=== PATIENT | female | born 1990 | race Caucasian/White ===

== ENCOUNTER 2024-08-12 14:33 | Emergency (ER) | payer BC, SELFPAY ==
[2024-08-12 14:35] VITALS: BP 132/80
--- NOTE | 2024-08-12 15:24 | ED.GENMED ---
History of Present Illness
General
Chief Complaint: Fall
Source: patient
Time Seen by Provider: 08/12/24 14:57
History of Present Illness
History of Present Illness:
34-year-old female presenting to the emergency department for evaluation after she was walking her dogs, fell forward striking her head on the ground and sustained a 1-1/2 cm superficial laceration just lateral to the right eyebrow. There was no
loss consciousness, vomiting, visual changes, focal weakness or numbness. Patient denies any use of anticoagulants. Tetanus vaccine is up-to-date. She does note a very mild headache with discomfort mainly over the right forehead from where she
sustained the laceration.
Past History
Past History
ED Past Medical History: Psychiatric
ED Past Surgical History:
Social History
Tobacco: Non-smoker
Alcohol: Occasional
Drug: None
Personal:
Living: with family
Review of Systems
Review of Systems
All Other Systems: ROS reviewed and negative except as documented in HPI and ROS
Phy Exam
Physical Exam
Physical Exam:
GENERAL: Alert , in no apparent distress
EYE: conjunctiva clear
Head: 1-1/2 cm vertically oriented linear laceration just lateral to the right eyebrow, no active bleeding
NECK: Supple,
ENT: mmm.
LUNGS: no acute respiratory distress
NEUROLOGICAL: Alert and oriented
SKIN: Warm and dry, skin intact.
MUSCULOSKELETAL: well perfused.
PSYCH: Normal and appropriate interaction.
Scores
Heart Failure Risk
Heart Failure Risk Score: Not Applicable
Heart Score for Chest Pain Patients
STEMI patient?: Not applicable
Withdrawal Assessment of Alcohol
Withdrawal Assessment Completed?: Not applicable
Course
Vital Signs
Initial and Last Documented VS:
Initial Vital Signs
Temp Pulse Resp BP Pulse Ox
98.2 F 100 16 132/80 99
08/12/24 14:35 08/12/24 14:35 08/12/24 14:35 08/12/24 14:35 08/12/24 14:35
Last Documented Vital Signs
Temp Pulse Resp BP Pulse Ox
98.2 F 100 16 132/80 99
08/12/24 14:35 08/12/24 14:35 08/12/24 14:35 08/12/24 14:35 08/12/24 14:35
Procedures
Laceration Closure
Right Lateral Eye brow:
Status of Wound: clean
Size of Wound in cm: 1.5
Description of Wound Edges: sharp
Preparation: cleaned with saline
Anesthesia: 1% Lidocaine with epi
Revision/Debridement: routine- no revision
Skin Closure Material: 6-0 prolene
Number of sutures: 6
MDM/Problems Addressed
Differential Diagnosis Includes:
Contusion/laceration, concussion, I do not have concern for intracranial bleeding or calvarial fracture
MDM/Problems Addressed:
34-year-old female presenting to the emergency department for evaluation following an accidental trip and fall resulting in superficial laceration to the right lateral eyebrow. Laceration repaired as above without difficulty. Discussed risk first
benefit of CT imaging and concussion. Patient and spouse okay with foregoing CT scan. Discussed return precautions to the ER. Wound care discussed. Tetanus is up-to-date. Stable for discharge home.
*Pulse Oximetry
Patient hypoxic: no
*Critical Care Note
Total Time (30-74mins, 75-104mins- exclusive of procedures): Not Applicable
ED Attending Note
-
Portions of this chart may have been created with voice recognition software.� Occasional wrong word or��sound alike� substitutions may have occurred due to the inherent limitations of voice recognition software.
Discharge Plan
Departure
Patient Disposition: Home (Routine Discharge)
Date of Disposition: 08/12/24
Time of Disposition: 15:24
Patient with high blood pressure during this ER visit?: No
Discharge Problem:
Laceration of eyebrow, right
Instructions: Laceration Repair With Stitches (DC)
Prescriptions:
No Action
[id number] [ Multi] 1 EACH tablet
1 ea PO DAILY
acetaminophen 325 MG tablet
650 mg PO Q4HPRN PRN (Reason: mild pain) 0RF
ibuprofen 600 MG tablet
600 mg PO Q4HPRN PRN (Reason: cramps) 0RF
Referrals:
Ana Clinton, [Family Provider] -
Activity Restrictions/Additional Instructions:
Suture removal in 5-7 days
Interventions
Interventions:
*Risk Screen - Suicide Last Done: 08/12/24 14:35
*General Assessment Last Done: 08/12/24 14:35
*Neglect/Abuse Screening Last Done: 08/12/24 14:35
*ED- Fall Risk Assessment Last Done: 08/12/24 15:34
*ED COVID-19 Vaccine History Last Done: 08/12/24 14:35
*Nursing Disposition Last Done: 08/12/24 15:34
ED-Musculoskeletal Assessment Last Done: 08/12/24 15:07
ED- Neurological Assessment Last Done: 08/12/24 15:07
ED-Skin Assessment Last Done: 08/12/24 15:07
Discharge Date and Time
Discharge Date/Time: 08/12/24 15:34
Print Language: KHMER
== END 2024-08-12 15:34 | disposition home or self-care (01) ==
LOC: EMR 14:33
PROVIDERS: EMERGENCY PHYSICIAN Emergency Medicine; FAMILY PHYSICIAN Family Medicine
DX: S01.111A Laceration without foreign body of right eyelid and periocular area, initial encounter (principal); W01.0XXA Fall on same level from slipping, tripping and stumbling without subsequent striking against object, initial encounter; Y93.K1 Activity, walking an animal
CPT/HCPCS: 12011; 99282

== ENCOUNTER → 2025-03-28 11:26 | Outpatient (REF) | payer OTHER, SELFPAY | LOC: OHS 11:26 | PROVIDERS: ATTENDING PHYSICIAN Nurse Practitioner Family | DX: Z23 Encounter for immunization (principal) | CPT/HCPCS: 36415; 86480 ==